=== PATIENT | female | born 1975 | race Two or more races ===

== ENCOUNTER 2018-11-28 14:42 | Emergency (ER) | payer SELFPAY ==
[~2018-11-28] VITALS: Ht 170.2 cm; Wt 93.0 kg
[2018-11-28] MEDS ORDERED: BACITRACIN ZINC OINT UDPKT TOP ONE (20:00)
[2018-11-28] MEDS ORDERED: HYDROCODONE/ACETAMINOPHEN 5/325MG TABLET PO ONE (20:15)
[2018-11-28 20:27] VITALS: BP 121/69
== END 2018-11-28 21:04 | disposition home or self-care (01) ==
LOC: ER 14:42
DX: T22.211A Burn of second degree of right forearm, initial encounter (principal); T31.0 Burns involving less than 10% of body surface; X12.XXXA Contact with other hot fluids, initial encounter; Y93.89 Activity, other specified; Y92.018 Other place in single-family (private) house as the place of occurrence of the external cause
CPT/HCPCS: 99283